=== PATIENT | female | born 1990 | race African-American/Black ===

== ENCOUNTER 2022-07-09 07:05 | Emergency (ER) | payer MEDICAID, OTHER ==
[~2022-07-09] VITALS: Ht 157.5 cm; Wt 82.0 kg
[~2022-07-09 07:05] MED LIST: ALBUTEROL
[2022-07-09 07:30] VITALS: BP 143/86
[2022-07-09] MEDS ORDERED: IBUPROFEN 800MG TABLET PO ONE (07:30)
[2022-07-09] MEDS ORDERED: BUPIVACAINE HCL/PF 0.5% (5MG/ML) 10ML INFIL ONE (07:30)
[2022-07-09] MEDS ORDERED: IBUP-2030 PO (08:23)
[2022-07-09] MEDS ORDERED: AMOX1TAB16 PO (08:23)
== END 2022-07-09 08:58 | disposition home or self-care (01) ==
LOC: ER 07:05
DX: K04.7 Periapical abscess without sinus (principal); J45.909 Unspecified asthma, uncomplicated
CPT/HCPCS: 81025; 99282; J3490